=== PATIENT | male | born 1980 | race Caucasian/White ===

== ENCOUNTER 2018-12-18 08:58 | Emergency (ER) | payer SELFPAY, OTHER | END 2018-12-18 10:39 | disposition home or self-care (01) | LOC: FTE 08:58 | DX: R05 Cough (principal) | CPT/HCPCS: 99283 ==

== ENCOUNTER 2019-05-02 22:39 | Emergency (ER) | payer OTHER, MEDICAID ==
[2019-05-03] MEDS: KETOROLAC 30 MG INJ IM (02:58)
== END 2019-05-03 04:40 | disposition home or self-care (01) ==
LOC: E/R 22:39
DX: J20.9 Acute bronchitis, unspecified (principal)
CPT/HCPCS: 71045; 93005; 96372; 99284-25